=== PATIENT | female | born 1985 | race Caucasian/White ===

== ENCOUNTER 2020-02-07 12:12 | Outpatient (CLI) | payer BC | END 2020-02-07 23:59 | disposition home or self-care (01) | LOC: CARD DIAG 12:12 | PROVIDERS: ATTEND Obstetrics & Gynecology | DX: Z01.810 Encounter for preprocedural cardiovascular examination (principal); F11.20 Opioid dependence, uncomplicated | CPT/HCPCS: 93005 ==

== ENCOUNTER 2020-11-08 09:22 | Outpatient (CLI) | payer BC | END 2020-11-08 23:59 | disposition home or self-care (01) | LOC: RAD 09:22 | PROVIDERS: ATTEND Obstetrics & Gynecology | DX: R94.31 Abnormal electrocardiogram [ECG] [EKG] (principal); F11.20 Opioid dependence, uncomplicated | CPT/HCPCS: 93005 ==

== ENCOUNTER 2021-04-29 11:06 | Outpatient (CLI) | payer BC | END 2021-04-29 23:59 | disposition home or self-care (01) | LOC: RAD 11:06 | DX: R94.31 Abnormal electrocardiogram [ECG] [EKG] (principal); F11.20 Opioid dependence, uncomplicated | CPT/HCPCS: 93005 ==